=== PATIENT | female | born 1995 | race African-American/Black ===

== ENCOUNTER 2017-02-17 21:12 | Emergency (ER) | payer BC ==
[~2017-02-17] VITALS: Ht 175.3 cm; Wt 78.0 kg
[2017-02-17 21:15] VITALS: BP 135/78; PULSE 68; RESP 16; TEMP 98.8; O2SAT 100
[2017-02-17] MEDS ORDERED: ALBUAER3 INH (21:52)
[2017-02-17] MEDS ORDERED: birth control PO (21:52)
[2017-02-17] MEDS ORDERED: CLIN1CAP5 PO (22:01)
[2017-02-17] MEDS ORDERED: IBUP800T23 PO (22:01)
--- NOTE | 2017-02-17 22:01 | PD ---
HPI Chief Complaint: Oral / Dental Pain or Problem Time Seen by Provider: 21:57 Travel History International Travel<30 days: No Contact w/Intl Traveler<30days: No Traveled to known affect area: No History of Present Illness HPI Patient is a 21-year-old female presenting to emergency room evaluation of left lower tooth pain. Patient states the pain started last night, she denies any injury or trauma. She states that she also has pain in her throat pressure that radiates to her left ear. She denies any fever or chills, she states that she had recently been treated for influenza. She has no other complaints at this time. She reports the pain is a 6 out of 10 and describes it as sore and aching. PFSH Past Medical History Medical History: Denies Significant Hx Diminished Hearing: No Tetanus Vaccination: Unknown Influenza Vaccination: No ?: Not LMP: 01/20/2017 Past Surgical History Surgical History: No Previous Surgery Social History Alcohol Use: Yes (socially) Tobacco Use: No Substance Use: No Allergies-Medications (Allergen,Severity, Reaction): Coded Allergies: Penicillin (Verified Allergy, Severe, 02/17/17) Augmentin (Verified Allergy, Intermediate, 02/17/17) Bactrim (Verified Allergy, Intermediate, 02/17/17) Reported Meds & Prescriptions Reported Meds & Active Scripts Active Reported [ control] 1 Tab PO DAILY Proair Hfa 8.5 GM Inh (Albuterol Sulfate) 90 Mcg/Act Aer 2 Puff INH Q4-6H PRN 108 mcg/actuation Review of Systems Except as stated in HPI: all other systems reviewed are Neg HENT: Positive: Sore Throat, Dental Difficulties, Earache Physical Exam Narrative GENERAL: Well-nourished, well-developed patient. SKIN: Focused skin assessment warm/dry. HEAD: Normocephalic. EYES: No scleral icterus. No injection or drainage. MOUTH: Mucous membranes moist, no lesions, tongue and gums appear normal. No dental caries noted, teeth and gums appear healthy with no signs of infection. NECK: Supple, trachea midline. No JVD, 1+ mandibular lymphadenopathy on left, 1 + tonsillar hypertrophy bilaterally. CARDIOVASCULAR: Regular rate and rhythm without murmurs, gallops, or rubs. RESPIRATORY: Breath sounds equal bilaterally. No accessory muscle use. GASTROINTESTINAL: Abdomen soft, non-tender, nondistended. MUSCULOSKELETAL: No cyanosis, or edema. BACK: Nontender without obvious deformity. No CVA tenderness. Data Data Last Documented VS Vital Signs Date Time Temp Pulse Resp B/P Pulse Ox O2 Delivery O2 Flow Rate FiO2 02/17/17 21:15 98.8 68 16 135/78 100 Room Air MDM Medical Decision Making Medical Screen Exam Complete: Yes Emergency Medical Condition: Yes Interpretation(s) Vital Signs Date Time Temp Pulse Resp B/P Pulse Ox O2 Delivery O2 Flow Rate FiO2 02/17/17 21:15 98.8 68 16 135/78 100 Room Air Differential Diagnosis Dentalgia versus abscess versus pharyngitis versus other Narrative Course Patient is a 21-year-old female presenting to emergency evaluation of left lower tooth pain. Physical examination is unremarkable other than submandibular lymphadenopathy on the left and enlarged tonsils. At this time patient will be treated for acute pharyngitis. She was encouraged to follow-up with her primary doctor and dentist as needed however her teeth appear healthy with no sign of infection. Patient's vital signs are stable. Patient and mother verbalized understanding of instructions. Patient is stable for discharge. Diagnosis Primary Impression: Pharyngitis Qualified Code: J02.9 - Pharyngitis, unspecified etiology Referrals: Primary Care Physician Patient Instructions: General Instructions, Pharyngitis (ED) Additional Instructions: Follow-up with her primary doctor Take medications as directed Return to emergency department for any new or worsening symptoms Med/Other Pt SpecificInfo: Prescription(s) given Scripts Ibuprofen 800 Mg [id number] Mg PO Q6HR PRN (PAIN) #40 TAB Ref 0 Prov:Caren Leiva 02/17/17 Clindamycin 150 Mg [id number] Mg PO Q8HR 7 Days Ref 0 Prov:Caren Leiva 02/17/17 Disposition: 01 DISCHARGE HOME Condition: Stable Caren Leiva February 17, 2017 22:01
== END 2017-02-17 22:17 | disposition home or self-care (01) ==
LOC: NEPD 21:12
DX: J02.9 Acute pharyngitis, unspecified (principal); R59.0 Localized enlarged lymph nodes; K08.89 Other specified disorders of teeth and supporting structures; H92.02 Otalgia, left ear
CPT/HCPCS: 99283